=== PATIENT | male | born 1955 | race Caucasian/White ===

== ENCOUNTER 2017-08-11 05:18 | Observation (INO) | payer MEDICARE ==
[~2017-08-11] VITALS: Ht 182.9 cm; Wt 120.2 kg
[~2017-08-11 05:18] MED LIST: ALBU8.5H8 INH; ATOR10TA9 PO; CLON0.1T PO; FLUT9.9S NAS; INDO50CA PO; LISI40TA PO; METF500T4 PO; METO50TA82 PO; METO5TAB5 PO; SERT50TA5 PO
[2017-08-11 06:22] VITALS: BP 161/91
[2017-08-11] MEDS ORDERED: OXYC10TA6 PO (06:45)
[2017-08-11] MEDS ORDERED: FENTANYL PF 250 MCG/5ML ONE (06:58)
[2017-08-11] MEDS ORDERED: MIDAZOLAM 1 MG/ML, 2ML ONE (06:58)
[2017-08-11] MEDS ORDERED: BUPIVACAINE/PF 0.5% ONE (06:58)
[2017-08-11] MEDS ORDERED: EPINEPHRINE 1 MG/ML, 1ML ONE (06:58)
[2017-08-11] MEDS ORDERED: BACITRACIN 50,000 UNIT ONE (06:58)
[2017-08-11] MEDS: LACTATED RINGERS 1,000 ML IV SCH ×2 (07:01→11:04)
[2017-08-11] MEDS ORDERED: hydrALAzine 20 MG/ML, 1ML ONE (07:25)
[2017-08-11] MEDS ORDERED: METOPROLOL 1 MG/ML, 5ML ONE (07:25)
[2017-08-11 07:27] LABS: ASPARTATE AMINO TRANSFERASE 25 U/L (15-37); BLOOD UREA NITROGEN 13 mg/dL (7-18)
[2017-08-11] MEDS ORDERED: hydrALAzine 20 MG/ML, 1ML IV PRN (07:30)
[2017-08-11] MEDS ORDERED: ALBUTEROL SULFATE 2.5 MG/3 ML NPPB PRN (07:30)
[2017-08-11] MEDS ORDERED: PROMETHAZINE 25 MG/ML, 1ML IV PRN (07:30)
[2017-08-11] MEDS ORDERED: HYDROmorphone 1 MG/ML, 1ML IV PRN (07:30)
[2017-08-11] MEDS ORDERED: MEPERIDINE/PF 25MG/0.5ML IVPush PRN (07:30)
[2017-08-11] MEDS ORDERED: OXYcodone 5 MG/5 ML ORAL.SOL UDC PO PRN ×2 (07:30→09:00)
[2017-08-11] MEDS ORDERED: METOPROLOL 1 MG/ML, 5ML IV PRN (07:30)
[2017-08-11 07:46] LABS: HEMATOCRIT 48.6 % (39.2-51.8); HEMOGLOBIN 17.3 g/dL (13.7-18.0); WHITE BLOOD COUNT 8.6 x10^3/uL (3.4-10)
[2017-08-11] MEDS ORDERED: BUPIVACAINE/PF-EPI 0.5% 1:200K INFIL ONE (07:58)
[2017-08-11] MEDS ORDERED: PROPOFOL 10 MG/ML, 20ML ONE (08:17)
[2017-08-11] MEDS ORDERED: SUCCINYLCHOLINE 20 MG/ML, 10ML ONE (08:17)
[2017-08-11] MEDS ORDERED: ONDANSETRON 2MG/ML, 2ML ONE (08:17)
[2017-08-11] MEDS ORDERED: DEXAMETHASONE 4 MG/ML, 1ML ONE (08:17)
[2017-08-11] MEDS ORDERED: GLYCOPYRROLATE 0.2MG/1ML, 5ML ONE (08:17)
[2017-08-11] MEDS ORDERED: CEFAZOLIN 1,000 MG ONE (08:17)
[2017-08-11] MEDS ORDERED: ROCURONIUM 10 MG/ML,10ML ONE (08:17)
[2017-08-11] MEDS ORDERED: NEOSTIGMINE 1 MG/ML, 10ML ONE (08:17)
[2017-08-11] MEDS ORDERED: FENTANYL PF 100 MCG/2ML ONE ×2 (08:53→09:45)
[2017-08-11] MEDS ORDERED: OXYcodone 5 MG/5 ML ORAL.SOL UDC ONE (08:53)
[2017-08-11] MEDS: FENTANYL PF 100 MCG/2ML IV PRN ×5 (08:58→09:45)
[2017-08-11] MEDS ORDERED: SERTRALINE 50MG TABLET PO SCH (09:00)
[2017-08-11] MEDS ORDERED: LISINOPRIL 20 MG TABLET PO SCH (09:00)
[2017-08-11] MEDS ORDERED: HYDROcodone/APAP 10/325 MG TABLET PO PRN (09:00)
[2017-08-11] MEDS ORDERED: morphine SULFATE 10 MG/ML, 1ML IV PRN (09:00)
[2017-08-11] MEDS ORDERED: metFORMIN 500 MG TABLET PO SCH (09:00)
[2017-08-11] MEDS ORDERED: DOCUSATE 100 MG CAPSULE PO SCH (09:00)
[2017-08-11] MEDS ORDERED: METOPROLOL TARTRATE 50 MG TABLET PO SCH (09:00)
[2017-08-11] MEDS ORDERED: INDOMETHACIN 50 MG CAPSULE PO PRN (09:00)
[2017-08-11] MEDS ORDERED: METOLAZONE 5 MG TABLET PO SCH (09:00)
[2017-08-11] MEDS ORDERED: ALBUTEROL HFA 90 MCG/SPRAY INH SCH (11:00)
[2017-08-11] MEDS ORDERED: OXYcodone IR 5MG TABLET PO PRN (11:00)
[2017-08-11] MEDS ORDERED: NICOTINE 7 MG/24 HR PATCH.TD24 TD SCH (12:00)
[2017-08-11] MEDS ORDERED: CEFAZOLIN PMX 2GM/50ML 50 ML IVPB SCH (16:30)
== END 2017-08-11 12:51 | disposition left against medical advice (07) ==
LOC: OUT 05:18 → 3NE 08:44 → 4NOR 10:13
PROVIDERS: ADMIT Orthopaedic Surgery; ATTEND Orthopaedic Surgery
DX: M70.22 Olecranon bursitis, left elbow (principal); M10.022 Idiopathic gout, left elbow; M1A.0220 Idiopathic chronic gout, left elbow, without tophus (tophi); E11.9 Type 2 diabetes mellitus without complications; J44.9 Chronic obstructive pulmonary disease, unspecified; D49.9 Neoplasm of unspecified behavior of unspecified site; E78.5 Hyperlipidemia, unspecified; I48.91 Unspecified atrial fibrillation; F17.200 Nicotine dependence, unspecified, uncomplicated
CPT/HCPCS: 24105; 36415; 80053; 82962; 85025; 93005; G0378; J0171; J0330; J0360; J0690; J1100; J2250; J2405; J2704; J3010; J3490; J7120; J2710

== ENCOUNTER 2019-11-01 06:12 | Emergency (ER) | payer MEDICARE ==
[~2019-11-01] VITALS: Ht 182.9 cm; Wt 108.0 kg
[~2019-11-01 06:12] MED LIST changes: -CLON0.1T PO; +CLON0.1T22 PO; -INDO50CA PO; +INDO50CA15 PO; +METF500T17 PO; -METF500T4 PO; +OXYC10TA6 PO; +SERT50TA28 PO; -SERT50TA5 PO
--- NOTE | 2019-11-01 06:57 | NUR ---
Bedside report received from Danette ESPARZA, pt care assumed by Hudson ESPARZA at this time. Pt resting in bed, denies additional needs at this time, call light within reach, NAD, pt placed on monitor, WCTM.
[2019-11-01] MEDS ORDERED: ONDANSETRON 2MG/ML, 2ML ONE (06:59)
[2019-11-01] MEDS ORDERED: MORPHINE SULFATE 4 MG/ML, 1ML ONE ×3 (06:59→09:48)
[2019-11-01] MEDS ORDERED: ONDANSETRON 2MG/ML, 2ML IVPush ONE (07:00)
[2019-11-01] MEDS ORDERED: SODIUM CHLORIDE FLUSH 10ML SYR IVF ONE (07:00)
[2019-11-01] MEDS: MORPHINE SULFATE 4 MG/ML, 1ML IVPush PRN ×2 (07:01→08:04)
--- NOTE | 2019-11-01 07:42 | NUR ---
Urine walked to lab, pt resting on gurney in gown, NAD, pt to imaging.
--- NOTE | 2019-11-01 08:00 | NUR ---
late entry: pt back from RADS, NAD, resting in [facility], on monitor, call light within reach. WCTM
[2019-11-01 08:02] LABS: MICROSCOPIC AUTO
[2019-11-01 08:07] LABS: CULTURE INDICATED? NO
[2019-11-01 08:26] LABS: BASOPHILS # (AUTO) 0.03 x10^3/uL (0-0.1); BASOPHILS % (AUTO) 0 % (0-1); EOSINOPHILS # (AUTO) 0.09 x10^3/uL (0-0.4); EOSINOPHILS % (AUTO) 1 % (1-7); LYMPHOCYTES # (AUTO) 1.37 x10^3/uL (1-3.4); LYMPHOCYTES % (AUTO) 14 % (22-44); MD NO; MEAN CORPUSCULAR HEMOGLOBIN 34.8 pg (27.5-34.5); MEAN CORPUSCULAR VOLUME 102.4 fL (81-97); MEAN PLATELET VOLUME 7.1 fL (7.4-10.4); MONOCYTES # (AUTO) 0.54 x10^3/uL (0.2-0.8); MONOCYTES % (AUTO) 5 % (2-9); NEUTROPHILS # (AUTO) 8.01 x10^3/uL (1.8-6.8); NEUTROPHILS % (AUTO) 80 % (42-75); PLATELET COUNT 207 x10^3/uL (130-400); RED BLOOD COUNT 5.26 x10^6/uL (4.38-5.82)
[2019-11-01 08:28] LABS: ALANINE AMINOTRANSFERASE 25 U/L (12-78); ALBUMIN 3.7 g/dL (3.4-5.0); ANION GAP 10 mmol/L (5-15); CALCIUM 7.8 mg/dL (8.5-10.1); CHLORIDE 108 mmol/L (98-107)
[2019-11-01 08:30] LABS: INTERNATIONAL NORMALIZED RATIO 1.12 (0.93-1.1); PROTHROMBIN TIME 11.9 Seconds (9.6-11.5)
[2019-11-01] MEDS ORDERED: ENALAPRILAT 1.25 MG/ML, 2ML IV ONE (08:30)
[2019-11-01 08:33] LABS: ALKALINE PHOSPHATASE 96 U/L (45-117); BILIRUBIN,TOTAL 0.6 mg/dL (0.2-1.0); CREATININE 1.05 mg/dL (0.7-1.3); TOTAL PROTEIN 7.3 g/dL (6.4-8.2); TROPONIN I < 0.015 ng/mL (0.000-0.045)
[2019-11-01] MEDS ORDERED: ENALAPRILAT 1.25 MG/ML, 1ML ONE (08:41)
--- NOTE | 2019-11-01 09:16 | NUR ---
pt report given to Peter ESPARZA, pt care transferred at this time.
[2019-11-01] MEDS ORDERED: MORPHINE SULFATE 4 MG/ML, 1ML IVPush PRN (09:30)
--- NOTE | 2019-11-01 09:35 | NUR ---
PT MOVED TO TRAUMA 4. NICARDIPINE DRIP STARTED AT 5.0 MG/HR PER DR BORDEN VERBAL ORDER. PT ON CARDIAC AND VITALS MONITORS. WILL CONTINUE TO MONITOR.
[2019-11-01] MEDS ORDERED: OMNIPAQUE 350 MG/ML, 150 ML BOTTLE ONE (10:03)
[2019-11-01] MEDS ORDERED: LABETALOL 5MG/ML, 20ML ONE (10:17)
--- NOTE | 2019-11-01 10:21 | NUR ---
PT HAVING TO VOID MULTIPLE TIMES WITH MINIMAL URINE OUT PUT BY SITING ON EGDE OF BED. PT HR UP TO 140BPM ON THIS ATTEMPT TO STAND AND VOID. ERP OKAY WITH STRAIGHT CATHING PT PT NEEDS TO MINIMIZE MOVEMENT. PT BP IMPROVING, SEE CHARTED. PT STRESSED ABOUT TRYING TO FIND A SITTER FOR HIS PARROT. PT ASKED TO NOT WORRY ABOUT THIS AT THIS TIME. WILL CONTINUE TO MONITOR.
[2019-11-01] MEDS ORDERED: LABETALOL 5MG/ML, 20ML IVPush ONE (10:30)
[2019-11-01] MEDS ORDERED: ESMOLOL/NS PMX 250 ML IV PRN (10:30)
[2019-11-01] MEDS ORDERED: NITROPRUSSIDE 50 MG in DEXTROSE 5% 248 ML IV PRN (10:30)
[2019-11-01] MEDS ORDERED: LIDOCAINE 1%, 2ML INFIL ONE (10:30)
[2019-11-01] MEDS ORDERED: LIDOCAINE-MPF 1%, 5ML ONE (10:34)
[2019-11-01] MEDS ORDERED: LORazepam 2 MG/ML, 1ML ONE (10:47)
--- NOTE | 2019-11-01 11:05 | NUR ---
ERP UNABLE TO PLACE ART LINE AT THIS TIME. PT BP IMPROVING TO DESIRED RANGE. [facility] HERE TO TRANSPORT PT. PT A&OX4, VSS.
[2019-11-01 11:07] VITALS: BP 105/70
--- NOTE | 2019-11-01 11:12 | NUR ---
Lucien RN: Report to VILMA Leyva [facility] charge nurse. R radial A line placed by Dr. Mckeon. Transport team here for critical care ground transfer.
[2019-11-01] MEDS ORDERED: LORazepam 2 MG/ML, 1ML IVPush ONE (11:30)
== END 2019-11-01 11:32 | disposition short-term general hospital (02) ==
LOC: ED 07:17
DX: I71.03 Dissection of thoracoabdominal aorta (principal); I10 Essential (primary) hypertension; E11.9 Type 2 diabetes mellitus without complications; E78.00 Pure hypercholesterolemia, unspecified; F17.210 Nicotine dependence, cigarettes, uncomplicated; F32.9 Major depressive disorder, single episode, unspecified; I44.0 Atrioventricular block, first degree; R94.31 Abnormal electrocardiogram [ECG] [EKG]; I25.2 Old myocardial infarction; Z79.899 Other long term (current) drug therapy
CPT/HCPCS: 36415; 71275; 74022; 74174; 80053; 80307; 81001; 83690; 84484; 85025; 85610; 85730; 93005; 96365; 96368; 96375; 96376; 99291; 99292; J2060; J2270; J2405; J7050; J7060; Q9967

== ENCOUNTER 2021-03-30 14:01 | Inpatient (IN) | payer MEDICARE ==
[~2021-03-30] VITALS: Ht 182.9 cm; Wt 94.5 kg
[~2021-03-30 14:01] MED LIST changes: -LISI40TA PO; +LISI40TA9 PO
--- NOTE | 2021-03-30 14:06 | NUR ---
BIB EMS FROM HOME FOR ALTERED COGNITION; PER PT, "I COULDN'T TYPE THE NUMBERS INTO MY PHONE!" PER EMS, PT WAS TREATED AT [facility] WITH ABX RECENTLY FOR L ELBOW WOUND. PT ALSO HAS WOUND TO L SHOULDER AREA FOR SKIN CANCER REMOVAL, COVERED WITH GAUZE DRESSING. PT C/O L WRIST PAIN, HAS MILD SWELLING, STATES, "IT MIGHT BE BROKEN". BS 102 PER EMS, VSS. STROKE EXAM NEGATIVE. PT REPORTS HX AAA, DM, HTN.
--- NOTE | 2021-03-30 14:13 | NUR ---
MARINE VIERA WAS IN TO SEE PT. EKG BEING DONE AT BS.
--- NOTE | 2021-03-30 14:31 | NUR ---
ER PA AWARE OF BP 204/104, WANTS TO HOLD OFF ON TREATING FOR NOW. PT A&OX4. XR L WRIST DONE AT BS.
--- NOTE | 2021-03-30 15:05 | NUR ---
REPORTED TO NELIA ESPARZA.
[2021-03-30 15:28] LABS: ALBUMIN 3.2 g/dL (3.4-5.0); ANION GAP 11 mmol/L (5-15); CALCIUM 8.7 mg/dL (8.5-10.1); CHLORIDE 111 mmol/L (98-107)
[2021-03-30 15:31] LABS: ALANINE AMINOTRANSFERASE 40 U/L (12-78); ALKALINE PHOSPHATASE 90 U/L (45-117); BILIRUBIN,TOTAL 0.4 mg/dL (0.2-1.0); CREATININE 0.71 mg/dL (0.7-1.3); TOTAL PROTEIN 7.4 g/dL (6.4-8.2)
[2021-03-30 15:35] LABS: MEAN CORPUSCULAR HEMOGLOBIN 36.5 pg (27.5-34.5); MEAN PLATELET VOLUME 7.5 fL (7.4-10.4); PLATELET COUNT 328 x10^3/uL (130-400); RED CELL DISTRIBUTION WIDTH 13.3 % (9.4-14.8)
--- NOTE | 2021-03-30 15:45 | NUR ---
TASK RN: PT PLACED ON PIANO MACHINE OPERATOR, IV STARTED. DR. BOBO AT BEDSIDE.
[2021-03-30 15:53] LABS: BAND#(MANUAL) 0.18 x10^3/uL; BANDS%(MANUAL) 2 % (0-7); EOS#(MANUAL) 0.09 x10^3/uL (0.0-0.4); EOS% (MANUAL) 1 % (1-7); LYMPH#(MANUAL) 2.55 x10^3/uL (1-3.4); LYMPHS% (MANUAL) 29 % (22-44); MONOS#(MANUAL) 0.53 x10^3/uL (0.3-2.7); MONOS% (MANUAL) 6 % (2-9); SEG#(MANUAL) 5.46 x10^3/uL (1.8-6.8); SEGS% (MANUAL) 62 % (42-75)
[2021-03-30 15:54] LABS: <PLATELET ESTIMATE> ADEQUATE; <PLT MORPHOLOGY> NORMAL PLT MORPH
--- NOTE | 2021-03-30 15:57 | NUR ---
REPORTED BP TO DR. BOBO, PER DR. BOBO GIVE HYDRALAZINE 10MG IV.
[2021-03-30] MEDS ORDERED: hydrALAzine 20 MG/ML, 1ML ONE (15:58)
[2021-03-30] MEDS ORDERED: hydrALAzine 20 MG/ML, 1ML IV ONE (16:00)
[2021-03-30 16:06] LABS: INTERNATIONAL NORMALIZED RATIO 1.06 (0.93-1.1); PROTHROMBIN TIME 11.3 Seconds (9.6-11.5)
--- NOTE | 2021-03-30 17:18 | NUR ---
PT FOUND BY VILMA CABRERA SMOKING A CIGARETTE IN HIS BED. CIG TAKEN FROM PT, PT EDUCATED ON NO SMOKING POLICY. PT VERBALIZED UNDERSTANDING.
--- NOTE | 2021-03-30 17:35 | NUR ---
PT RIPPED MONITORING OFF AND WAS FOUND IN HALLWAY CRYING. THIS RN REQUESTED SITTER FROM CHARGE. PT TO BE MOVED TO ROOM 2 SO HE CAN HAVE A SITTER.
--- NOTE | 2021-03-30 17:42 | NUR ---
REPORT TO VILMA NAJERA.
--- NOTE | 2021-03-30 17:47 | NUR ---
REPORT OF PT FROM VILMA PICKENS AND ASSUMING CARE OF PT AT THIS TIME.
--- NOTE | 2021-03-30 18:16 | NUR ---
PT BP UPDATED IN EMR AND REPORTED TO DR. BOBO. VERBAL ORDERS RECEIVED FOR NICARDIPINE DRIP. YELLOW PHARMACY SLIP SENT TO LAB AT THIS TIME FOR MEDICATION REQUEST.
--- NOTE | 2021-03-30 18:42 | NUR ---
SPOKE WITH PHARMACY ABOUT WHEREABOUTS OF NICARDIPINE DRIP. PER BUREAU CHIEF, WILL BE TUBED IN A 'FEW MINUTES'
[2021-03-30] MEDS ORDERED: SODIUM CHLORIDE FLUSH 10ML SYR IVF PRN (19:00)
--- NOTE | 2021-03-30 19:04 | NUR ---
RECEIVED BS REPORT FROM VILMA NAJERA TO ASSUME CARE OF PT. AT THIS TIME. ALL MONITORS IN PLACE. HOB 30 DEGREES. NICARDIPINE DRIP BEING INITIATED AT THIS TIME.
--- NOTE | 2021-03-30 19:06 | NUR ---
SPOKE WITH DR BOBO ABOUT NEED FOR CENTRAL LINE PLACEMENT. PER DR BOBO, PIV ADMINISTRATION OKAY AT THIS TIME. REPORT OF PT TO VILMA CANO. ALL QUESTIONS ANSWERED. PT VSS AND UPDATED IN EMR. SITTER OUTSIDE OF ROOM FOR DIRECT OBSERVATION OF PT.
--- NOTE | 2021-03-30 19:13 | NUR ---
PT. A&O X 4. CAMPBELL X 4. LEFT ARM WEAKNESS R/T ELBOW AND WRIST PAIN FROM A FALL THAT HAPPENED ON 03/19"VANESA" PER PT. PERRL. POC DISCUSSED. PT. AGREEABLE WITH POC.
--- NOTE | 2021-03-30 19:31 | NUR ---
PT. EXPRESSING WORRY ABOUT HIS PARROT AT HOME. STATES HE NEEDS TO GET AHOLD OF HIS BROTHER LUKE TO GO ATTENT TO HIS PARROT. ED STAFF ASSITING PT. TO GET PHONE CHARGED AND FIND [facility] NUMBER ([phone]). WILL ATTEMPT TO GET [employer] OF [place] FOR PT. PER HIS REQUEST.
--- NOTE | 2021-03-30 19:38 | NUR ---
BATTERIES CHANGED ON BEDSCALE AND ACCURATE WEIGHT OBTAINED. 96.9KG. WILL ADJUST IN COMPUTER.
--- NOTE | 2021-03-30 19:40 | NUR ---
[facility] IN TO EVAL PT. FOR ADMISSION.
--- NOTE | 2021-03-30 19:56 | NUR ---
WAS ABLE TO REACH PT. BROTHER LUKE AND LUKE STATES HE IS GOING TO COME GET PT. RAHUL SO HE CAN ATTEND TO BENJAMIN THE PARROT.
[2021-03-30] MEDS ORDERED: ONDANSETRON 2MG/ML, 2ML IVPush PRN (20:00)
[2021-03-30] MEDS ORDERED: ONDANSETRON ODT 4 MG PO PRN (20:00)
--- NOTE | 2021-03-30 20:05 | NUR ---
FIRST ATTEMPT TO CALL REPORT TO UNIT.
--- NOTE | 2021-03-30 20:12 | NUR ---
REPORT TO VILMA GAMEZ. UNIT READY FOR PT. TRANSPORT.
--- NOTE | 2021-03-30 20:31 | NUR ---
KEYS GIVEN TO BROTHMARINE BUTLER AT THIS TIME.
[2021-03-30] MEDS: HYDROmorphone 2 MG/ML, 1ML IVPush PRN ×2 (20:45→22:05)
[2021-03-30] MEDS: ALBUTEROL SULFATE 2.5MG/0.5ML NPPB SCH (21:00)
[2021-03-30] MEDS: METOPROLOL TARTRATE 50 MG TAB PO SCH (21:05)
[2021-03-30] MEDS ORDERED: DIPHENHYDRAMINE 25 MG CAPSULE ONE (21:54)
[2021-03-30] MEDS ORDERED: DIPHENHYDRAMINE 50 MG CAPSULE PO ONE (22:00)
[2021-03-30] MEDS: LACTATED RINGERS 1,000 ML IV SCH (22:01)
[2021-03-31] MEDS: HYDROmorphone 2 MG/ML, 1ML IVPush PRN ×4 (01:05→20:07)
[2021-03-31] MEDS: NICOTINE 21 MG/24 HR PATCH.TD24 TD SCH ×2 (01:53→08:58)
[2021-03-31] MEDS: LACTATED RINGERS 1,000 ML IV SCH (04:34)
[2021-03-31] MEDS: ALBUTEROL SULFATE 2.5MG/0.5ML NPPB SCH ×2 (06:00→10:33)
[2021-03-31] MEDS: METOPROLOL TARTRATE 50 MG TAB PO SCH ×2 (06:02→18:15)
[2021-03-31] MEDS ORDERED: DIAZEPAM 5 MG TABLET PO SCH (06:30)
[2021-03-31 06:35] LABS: BASOPHILS % (AUTO) 1 % (0-1); EOSINOPHILS % (AUTO) 2 % (1-7); LYMPHOCYTES % (AUTO) 26 % (22-44); MEAN CORPUSCULAR HEMOGLOBIN 36.9 pg (27.5-34.5); MEAN CORPUSCULAR HGB CONC 35.3 g/dL (33.2-36.2); MEAN PLATELET VOLUME 7.2 fL (7.4-10.4); MONOCYTES % (AUTO) 8 % (2-9); NEUTROPHILS % (AUTO) 63 % (42-75); PLATELET COUNT 326 x10^3/uL (130-400); RED BLOOD COUNT 4.88 x10^6/uL (4.38-5.82); RED CELL DISTRIBUTION WIDTH 13.2 % (9.4-14.8)
[2021-03-31 06:50] LABS: ANION GAP 7 mmol/L (5-15); CALCIUM 8.8 mg/dL (8.5-10.1); CHLORIDE 111 mmol/L (98-107); CHOLESTEROL, TOTAL 139 mg/dL (140-239); CREATININE 0.62 mg/dL (0.7-1.3)
[2021-03-31 06:52] LABS: CHOL/HDL RATIO 4.2; HDL CHOL % 24 % (26-37); HDL CHOLESTEROL (DIRECT) 33 mg/dL (40-60); LDL CHOLESTEROL,CALCULATED 83 mg/dL (54-169); LDL/HDL RATIO 2.5 (0.5-3.0); TRIGLYCERIDES 114 mg/dL (50-200); VLDL CHOLESTEROL 23 mg/dL (0-25)
[2021-03-31] MEDS: LISINOPRIL 40 MG TABLET PO SCH (08:58)
[2021-03-31] MEDS ORDERED: AMLODIPINE 5 MG TABLET PO SCH (09:00)
[2021-03-31] MEDS ORDERED: LORazepam 1MG TABLET PO PRN ×3 (10:30)
[2021-03-31] MEDS ORDERED: LORazepam 0.5MG TABLET PO PRN (10:30)
[2021-03-31] MEDS ORDERED: LORazepam 2 MG/ML, 1ML IV PRN ×3 (10:30)
[2021-03-31] MEDS: DIAZEPAM 10 MG TABLET PO SCH ×3 (10:37→20:05)
[2021-03-31] MEDS ORDERED: ALBUTEROL SULFATE 2.5MG/0.5ML NPPB PRN (11:00)
[2021-03-31] MEDS: THIAMINE 200 MG in SODIUM CHLORIDE 0.9% 50 ML IV SCH (12:39)
[2021-03-31] MEDS ORDERED: OMNIPAQUE 350 MG/ML, 100ML BOTTLE ONE (17:59)
[2021-03-31] MEDS: ATORVASTATIN 40 MG TABLET PO SCH (20:05)
[2021-04-01 04:30] LABS: BASOPHILS % (AUTO) 1 % (0-1); EOSINOPHILS % (AUTO) 2 % (1-7); LYMPHOCYTES % (AUTO) 15 % (22-44); MEAN CORPUSCULAR HEMOGLOBIN 36.8 pg (27.5-34.5); MEAN CORPUSCULAR HGB CONC 35.3 g/dL (33.2-36.2); MEAN PLATELET VOLUME 7.3 fL (7.4-10.4); MONOCYTES % (AUTO) 7 % (2-9); NEUTROPHILS % (AUTO) 75 % (42-75); PLATELET COUNT 336 x10^3/uL (130-400); RED BLOOD COUNT 4.69 x10^6/uL (4.38-5.82); RED CELL DISTRIBUTION WIDTH 13.1 % (9.4-14.8)
[2021-04-01 04:40] LABS: CALCIUM 8.7 mg/dL (8.5-10.1)
[2021-04-01 04:41] LABS: CREATININE 1.01 mg/dL (0.7-1.3)
[2021-04-01 04:59] LABS: ANION GAP 8 mmol/L (5-15); CHLORIDE 106 mmol/L (98-107)
[2021-04-01] MEDS: METOPROLOL TARTRATE 50 MG TAB PO SCH (05:16)
[2021-04-01] MEDS: DIAZEPAM 10 MG TABLET PO SCH ×4 (05:16→22:15)
[2021-04-01] MEDS: HYDROmorphone 2 MG/ML, 1ML IVPush PRN ×2 (05:17)
[2021-04-01] MEDS: NICOTINE 21 MG/24 HR PATCH.TD24 TD SCH (09:06)
[2021-04-01] MEDS: LISINOPRIL 40 MG TABLET PO SCH (09:06)
[2021-04-01] MEDS: AMLODIPINE 5 MG TABLET PO SCH (09:06)
[2021-04-01] MEDS: THIAMINE 200 MG in SODIUM CHLORIDE 0.9% 50 ML IV SCH (09:07)
[2021-04-01 12:05] VITALS: BP 130/97
[2021-04-01 22:03] VITALS: BP_SYST 130; BP_SYST 159; BP_DIAS 77; BP_DIAS 87
[2021-04-01] MEDS: ATORVASTATIN 40 MG TABLET PO SCH (22:15)
[2021-04-02 02:58] VITALS: BP 132/80
[2021-04-02 08:24] VITALS: BP 126/91
[2021-04-02] MEDS: THIAMINE 200 MG in SODIUM CHLORIDE 0.9% 50 ML IV SCH (11:35)
[2021-04-02] MEDS: NICOTINE 21 MG/24 HR PATCH.TD24 TD SCH (11:36)
[2021-04-02] MEDS: AMLODIPINE 5 MG TABLET PO SCH (11:36)
[2021-04-02] MEDS: LISINOPRIL 40 MG TABLET PO SCH (11:36)
[2021-04-02 11:42] VITALS: BP 174/84
[2021-04-02] MEDS: DIAZEPAM 10 MG TABLET PO SCH ×2 (12:00→21:31)
[2021-04-02 13:14] VITALS: BP 126/83
[2021-04-02 18:20] VITALS: BP 162/80
[2021-04-02] MEDS: ATORVASTATIN 40 MG TABLET PO SCH (21:31)
[2021-04-03] VITALS (7 sets, daily range): BP systolic 96–180; BP diastolic 76–106
[2021-04-03] MEDS: DIAZEPAM 10 MG TABLET PO SCH (04:07)
[2021-04-03] MEDS: LISINOPRIL 40 MG TABLET PO SCH (08:58)
[2021-04-03] MEDS: NICOTINE 21 MG/24 HR PATCH.TD24 TD SCH (08:58)
[2021-04-03] MEDS ORDERED: AMLODIPINE 5 MG TABLET PO SCH (09:00)
[2021-04-03] MEDS ORDERED: HYDROcodone/APAP 5/325 TABLET ONE ×2 (09:19→09:21)
[2021-04-03] MEDS: THIAMINE 200 MG in SODIUM CHLORIDE 0.9% 50 ML IV SCH (10:59)
[2021-04-03] MEDS ORDERED: LORazepam 1MG TABLET PO PRN ×2 (14:00)
[2021-04-03 14:11] LABS: ANION GAP 5 mmol/L (5-15); CALCIUM 8.4 mg/dL (8.5-10.1); CHLORIDE 110 mmol/L (98-107); CREATININE 0.84 mg/dL (0.7-1.3)
[2021-04-03] MEDS: LABETALOL 5MG/ML, 20ML IVPush SCH ×3 (14:12→22:30)
[2021-04-03] MEDS ORDERED: POTASSIUM CHLORIDE 20 MEQ TAB.ER.PRT PO ONE (14:30)
[2021-04-03] MEDS ORDERED: MAGNESIUM SULFATE PMX 2GM/50ML 50 ML IV ONE (14:30)
[2021-04-03] MEDS: METOPROLOL TARTRATE 25 MG TAB PO SCH ×2 (16:20→23:48)
[2021-04-03] MEDS ORDERED: HYDROcodone/APAP 10/325 MG TABLET ONE (20:26)
[2021-04-03] MEDS: ATORVASTATIN 40 MG TABLET PO SCH (20:42)
[2021-04-03] MEDS ORDERED: DIAZEPAM 10 MG TABLET PO SCH (21:00)
[2021-04-03] MEDS: DOCUSATE 100 MG CAPSULE PO SCH (21:11)
[2021-04-04] VITALS (7 sets, daily range): BP systolic 120–159; BP diastolic 69–99
[2021-04-04] MEDS: LABETALOL 5MG/ML, 20ML IVPush SCH ×5 (02:18→18:05)
[2021-04-04] MEDS: METOPROLOL TARTRATE 25 MG TAB PO SCH (08:06)
[2021-04-04] MEDS: DOCUSATE 100 MG CAPSULE PO SCH (08:06)
[2021-04-04] MEDS: NICOTINE 21 MG/24 HR PATCH.TD24 TD SCH (08:07)
[2021-04-04] MEDS: LISINOPRIL 40 MG TABLET PO SCH (08:07)
[2021-04-04] MEDS: THIAMINE 200 MG in SODIUM CHLORIDE 0.9% 50 ML IV SCH (08:43)
[2021-04-04] MEDS ORDERED: AMLODIPINE 5 MG TABLET PO SCH (09:00)
[2021-04-04] MEDS ORDERED: METOPROLOL TARTRATE 25 MG TAB PO SCH (21:00)
== END 2021-04-04 21:00 | disposition left against medical advice (07) | DRG 65 ==
LOC: ED 14:31 → EDIP 19:00 → CCU 20:22 → 4WST 04-01 11:55
PROVIDERS: ADMIT Student in an Organized Health Care Education/Training Program; ATTEND Hospitalist
DX: I61.3 Nontraumatic intracerebral hemorrhage in brain stem (principal); I16.1 Hypertensive emergency; I50.30 Unspecified diastolic (congestive) heart failure; D75.1 Secondary polycythemia; E11.9 Type 2 diabetes mellitus without complications; E78.00 Pure hypercholesterolemia, unspecified; F10.10 Alcohol abuse, uncomplicated; I11.0 Hypertensive heart disease with heart failure; I35.1 Nonrheumatic aortic (valve) insufficiency; I77.819 Aortic ectasia, unspecified site; Z86.79 Personal history of other diseases of the circulatory system; Z85.828 Personal history of other malignant neoplasm of skin; Z87.891 Personal history of nicotine dependence; W18.39XA Other fall on same level, initial encounter; Y93.01 Activity, walking, marching and hiking; Y92.89 Other specified places as the place of occurrence of the external cause; Y99.8 Other external cause status; F41.9 Anxiety disorder, unspecified; Z53.29 Procedure and treatment not carried out because of patient's decision for other reasons; R53.81 Other malaise
CPT/HCPCS: 36415; 70450; 70496; 70498; 70551; 80048; 80053; 80061; 80320; 82607; 82668; 82962; 83036; 83735; 84100; 84443; 85025; 85610; 85730; 87081; 93005; 93306; 96374; 96375; 99195; G0378; J1170; J3411; Q9967; 92523-GN; G0480; J0360; J2060; J3475; J7050; J7120

== ENCOUNTER 2021-04-05 18:12 | Emergency (ER) | payer MEDICARE ==
[~2021-04-05] VITALS: Ht 182.9 cm; Wt 84.0 kg
--- NOTE | 2021-04-05 18:17 | NUR ---
PT BIB EMS. PT WAS ADMITTED TO [facility] FOR A "BRAIN BLEED" AND WAS HERE FOR 7 DAYS BEFORE LEAVING [facility] THIS MORNING TO GO HOME AND FEED HIS PARROT. PT RETURNS TODAY WANTING TO "CONTINUE HIS TREATMENT". PT RESTING IN [facility]. LISA.
[2021-04-05 18:57] VITALS: BP 167/101
[2021-04-05 19:01] LABS: BASOPHILS % (AUTO) 1 % (0-1); EOSINOPHILS % (AUTO) 2 % (1-7); LYMPHOCYTES % (AUTO) 21 % (22-44); MEAN CORPUSCULAR HEMOGLOBIN 36.6 pg (27.5-34.5); MEAN CORPUSCULAR HGB CONC 35.2 g/dL (33.2-36.2); MEAN PLATELET VOLUME 7.8 fL (7.4-10.4); MONOCYTES % (AUTO) 8 % (2-9); NEUTROPHILS % (AUTO) 69 % (42-75); PLATELET COUNT 332 x10^3/uL (130-400); RED BLOOD COUNT 4.94 x10^6/uL (4.38-5.82); RED CELL DISTRIBUTION WIDTH 12.9 % (9.4-14.8)
--- NOTE | 2021-04-05 19:02 | NUR ---
Transported to [place] at this time.
[2021-04-05 19:06] LABS: ALBUMIN 3.5 g/dL (3.4-5.0); ANION GAP 4 mmol/L (5-15); CALCIUM 8.6 mg/dL (8.5-10.1); CHLORIDE 111 mmol/L (98-107)
[2021-04-05 19:09] LABS: ALANINE AMINOTRANSFERASE 51 U/L (12-78); ALKALINE PHOSPHATASE 98 U/L (45-117); BILIRUBIN,TOTAL 0.8 mg/dL (0.2-1.0); CREATININE 0.77 mg/dL (0.7-1.3); TOTAL PROTEIN 7.7 g/dL (6.4-8.2)
--- NOTE | 2021-04-05 20:10 | NUR ---
Pt provided with all discharge paperwork and cab voucher. Called [employer], no answer. Rep from registration able to contact [employer] for patient. Pt wheeled to loby, instructed to wait in lobby for cab to arrive. Pt elected to stand up with cane, and walk outside to smoke cigarette. I educated pt on not smoking on hospital property and to wait inside, as their are seats, and he ambulates with cane at baseline. Pt declined to head instructions. Decided to walk outside using cane, with all discharge paperwork and wait for cab outside.
== END 2021-04-05 20:21 | disposition home or self-care (01) ==
LOC: ED 18:34
DX: R41.82 Altered mental status, unspecified (principal); I62.9 Nontraumatic intracranial hemorrhage, unspecified; I10 Essential (primary) hypertension; E11.9 Type 2 diabetes mellitus without complications; E78.00 Pure hypercholesterolemia, unspecified; F17.200 Nicotine dependence, unspecified, uncomplicated; Z86.73 Personal history of transient ischemic attack (TIA), and cerebral infarction without residual deficits
CPT/HCPCS: 36415; 70450; 80053; 80320; 85025; 99284; G0480

== ENCOUNTER 2021-04-07 21:32 | Emergency (ER) | payer MEDICARE ==
[~2021-04-07] VITALS: Ht 182.9 cm; Wt 90.3 kg
[2021-04-07 23:37] VITALS: BP_SYST 151
--- NOTE | 2021-04-07 23:45 | NUR ---
PT BIB [facility] FOR ETOH, PT DRANK 2 FIFTH OF ETOH. PT IN GOWN, RESTING ON GURNEY, PLACE ON CONTINUOUS MONITORING.
--- NOTE | 2021-04-08 01:45 | NUR ---
Patient given discharge instructions and they have confirmed that they understand the instructions. Patient ambulatory with steady gait.
== END 2021-04-08 01:48 | disposition home or self-care (01) ==
LOC: ED 04-08 00:37
DX: F10.120 Alcohol abuse with intoxication, uncomplicated (principal); Z72.9 Problem related to lifestyle, unspecified; Y90.0 Blood alcohol level of less than 20 mg/100 ml; F17.200 Nicotine dependence, unspecified, uncomplicated; I10 Essential (primary) hypertension; E78.00 Pure hypercholesterolemia, unspecified; E11.9 Type 2 diabetes mellitus without complications
CPT/HCPCS: 99283